=== PATIENT | female | born 1930 | race Caucasian/White ===

== ENCOUNTER 2017-04-25 10:04 | Day surgery (SDC) | payer MEDICARE, MEDICAID ==
[~2017-04-25] VITALS: Ht 152.4 cm; Wt 59.1 kg
[2017-04-25] MEDS ORDERED: fentaNYL/PF 50MCG/1 ML 2ML syringe ONE (10:12)
[2017-04-25] MEDS ORDERED: LIDOcaine Viscous 15ml cup ONE (10:12)
[2017-04-25] MEDS ORDERED: MIDAZolam 5mg/ml 2ml vial ONE (10:12)
[2017-04-25 10:17] VITALS: BP 179/102
[2017-04-25] MEDS ORDERED: ASPI-1265 PO (10:21)
[2017-04-25] MEDS ORDERED: HYDR12.55 PO (10:21)
[2017-04-25 10:48] VITALS: BP 148/84
[2017-04-25 10:58] VITALS: BP 145/71
[2017-04-25 11:08] VITALS: BP 157/68
[2017-04-25 11:13] VITALS: BP 160/72
== END 2017-04-25 11:17 | disposition home or self-care (01) ==
LOC: GI LAB 10:04
PROVIDERS: ATTEND Internal Medicine Gastroenterology
DX: K44.9 Diaphragmatic hernia without obstruction or gangrene (principal); K29.70 Gastritis, unspecified, without bleeding; K22.2 Esophageal obstruction; I10 Essential (primary) hypertension; J44.9 Chronic obstructive pulmonary disease, unspecified; K21.9 Gastro-esophageal reflux disease without esophagitis; Z90.710 Acquired absence of both cervix and uterus; Z85.3 Personal history of malignant neoplasm of breast; Z87.891 Personal history of nicotine dependence; Z79.82 Long term (current) use of aspirin; Z88.0 Allergy status to penicillin; Z90.13 Acquired absence of bilateral breasts and nipples
CPT/HCPCS: 43239; 43249; C1726; G0500; J2250; J3010; J7030; 88305; A4620